=== PATIENT | male | born 1985 | race American Indian/Alaskan Native ===

== ENCOUNTER 2021-12-22 14:19 | Emergency (ER) | payer SELFPAY ==
--- NOTE | 2021-12-22 19:47 | Ultrasound Report ---
ULTRASOUND SCROTUM INDICATION / CLINICAL INFORMATION: testicular pain. COMPARISON: None available. FINDINGS -- RIGHT TESTIS: Size = 4.6 cm. - Appearance: No significant abnormality. - Cyst or Mass: None. - Color Doppler Flow: No significant abnormality. EPIDIDYMIS: No significant abnormality. HYDROCELE: Trace VARICOCELE: Present FINDINGS -- LEFT TESTIS: Size = 5 cm. - Appearance: No significant abnormality. - Cyst or Mass: None. - Color Doppler Flow: No significant abnormality. EPIDIDYMIS: No significant abnormality. HYDROCELE: Trace VARICOCELE: Present ADDITIONAL FINDINGS: None. IMPRESSION: 1. No acute testicular abnormality. No evidence of torsion. 2. Bilateral varicoceles. 3. Nonspecific trace bilateral hydroceles. Signer Name: Shekhar Hopper MD Signed: 12/22/2021 7:43 PM Workstation Name: [id number]
[2021-12-23 02:52] LABS: Bilirubin,Urine NEG (Negative); Blood,Urine NEG (Negative); Color,Urine Yellow (Yellow)
[2021-12-23 02:54] VITALS: BP 120/70
[2021-12-23 02:59] LABS: Amphetamine Screen,Urine PRESUMPTIVE NEGATIVE; Benzodiazepines Screen,Urine PRESUMPTIVE NEGATIVE; Cannabinoid Screen,Urine PRESUMPTIVE NEGATIVE; Cocaine Screen,Urine PRESUMPTIVE NEGATIVE; Methadone Screen,Urine PRESUMPTIVE NEGATIVE; Opiate Screen,Urine PRESUMPTIVE NEGATIVE
[2021-12-23 03:00] LABS: Mucus,Urine 1+ /HPF; Sperm,Urine 3+ /HPF (NP); WBC,Urine < 1.0 /HPF (0.0-6.0)
--- NOTE | 2021-12-23 03:37 | Emergency Department Report ---
ED General Adult HPI - General Chief complaint: Abdominal Pain Stated complaint: PAIN IN GROWING AREA Time Seen by Provider: 12/23/21 03:32 Source: patient Mode of arrival: Ambulatory Limitations: No Limitations - History of Present Illness Initial comments: Patient 36-year-old male with a history of right inguinal hernia, who presents for right groin pain radiating to right testicle for 2 days. Patient states he was just standing at work and felt a pull in his groin today. Denies dysuria frequency urgency no penile discharge. Patient is . Patient denies fevers or chills no nausea vomiting no abdominal or back pain. Pain is rated at 4/10 pain exacerbated by movement and palpation. Pain is relieved by nothing tried. Severity scale (0 -10): 6 - Related Data Previous Rx's Medication Instructions Recorded Last Taken Type Ibuprofen [Motrin 800 MG tab] 800 mg PO Q8HR PRN #30 tablet 12/23/21 Unknown Rx levoFLOXacin [Levaquin TAB] 500 mg PO QDAY 7 Days #7 tablet 12/23/21 Unknown Rx Allergies Allergy/AdvReac Type Severity Reaction Status Date / Time No Known Allergies Allergy Verified 12/23/21 02:41 ED Review of Systems ROS: Stated complaint: PAIN IN GROWING AREA Other details as noted in HPI Constitutional: denies: chills, fever Eyes: denies: eye pain, eye discharge, vision change ENT: denies: ear pain, throat pain Respiratory: denies: cough, shortness of breath, wheezing Cardiovascular: denies: chest pain, palpitations Endocrine: no symptoms reported Gastrointestinal: abdominal pain (Right inguinal). denies: nausea, vomiting, diarrhea, constipation, melena Genitourinary: testicular pain. denies: urgency, dysuria, frequency, hematuria, discharge, testicular mass Musculoskeletal: denies: back pain, joint swelling, arthralgia Skin: denies: rash, lesions Neurological: denies: headache, weakness, paresthesias Psychiatric: denies: anxiety, depression Hematological/Lymphatic: denies: easy bleeding, easy bruising ED Past Medical Hx - Past Medical History Additional medical history: Hernia right inguinal - Medications Home Medications: Home Medications Medication Instructions Recorded Confirmed Last Taken Type Ibuprofen [Motrin 800 MG tab] 800 mg PO Q8HR PRN #30 tablet 12/23/21 Unknown Rx levoFLOXacin [Levaquin TAB] 500 mg PO QDAY 7 Days #7 tablet 12/23/21 Unknown Rx ED Physical Exam - General Limitations: No Limitations General appearance: alert, in no apparent distress - Head Head exam: Present: normocephalic, normal inspection - Eye Eye exam: Present: EOMI Pupils: Present: normal accommodation - ENT ENT exam: Present: mucous membranes moist - Neck Neck exam: Present: normal inspection, full ROM. Absent: tenderness - Respiratory Respiratory exam: Present: normal lung sounds bilaterally. Absent: respiratory distress - Cardiovascular Cardiovascular Exam: Present: regular rate, normal rhythm, normal heart sounds. Absent: systolic murmur, diastolic murmur, rubs, gallop - GI/Abdominal GI/Abdominal exam: Present: soft, normal bowel sounds. Absent: distended, tenderness, guarding, rebound, rigid, bruit, hernia - Rectal Rectal exam: Present: deferred - exam: Present: testicular tenderness (Right epididymal tenderness no thrill no bruit), circumcision. Absent: urethral discharge, scrotal swelling, vertical testicular lie External exam: Present: normal external exam, other (No inguinal hernia). Absent: erythema, swelling, lesions, lacerations, ecchymosis, bleeding - Extremities Exam Extremities exam: Present: normal inspection, full ROM, normal capillary refill - Back Exam Back exam: Present: normal inspection, full ROM. Absent: CVA tenderness (R), CVA tenderness (L) - Neurological Exam Neurological exam: Present: alert, oriented X3, CN II-XII intact, normal gait - Expanded Neurological Exam Expanded Patient oriented to: Present: person, place, time Best Eye Response (Abdullahi): (4) open spontaneously Best Motor Response ([place]): (6) obeys commands Best Verbal Response (Abdullahi): (5) oriented [place] Total: 15 - Psychiatric Psychiatric exam: Present: normal affect, normal mood - Skin Skin exam: Present: warm, dry, intact, normal color. Absent: rash ED Course Vital Signs 12/22/21 12/23/21 17:18 02:53 Temperature 98.9 F 98.9 F Pulse Rate 78 64 Respiratory 18 15 Rate Blood Pressure 137/97 120/70 [Right] O2 Sat by Pulse 100 100 Oximetry ED Medical Decision Making - Lab Data Labs 12/23/21 12/23/21 02:42 02:42 Urine Color Yellow Urine Turbidity Clear Urine pH 6.0 Ur Specific [place] 1.031 H Urine Protein 30 mg/dl Urine Glucose (UA) Neg Urine Ketones Tr Urine Blood Neg Urine Nitrite Neg Urine Bilirubin Neg Urine Urobilinogen 4.0 Ur Leukocyte Esterase Neg Urine WBC (Auto) < 1.0 Urine RBC (Auto) 2.0 U Epithel Cells (Auto) < 1.0 Urine Mucus 1+ Urine Sperm 3+ Urine Opiates Screen Presumptive negative Urine Methadone Screen Presumptive negative Ur Barbiturates Screen Presumptive negative Ur Phencyclidine Scrn Presumptive negative Ur Amphetamines Screen Presumptive negative U Benzodiazepines Scrn Presumptive negative Urine Cocaine Screen Presumptive negative U Marijuana (THC) Screen Presumptive negative Drugs of Abuse Note Disclamer - Medical Decision Making This is epididymitis flank versus orchitis there is no testicular swelling horizontal lie left testicular rise. No inguinal hernia on exam. Plan treat for epididymitis, hydrate as directed. Follow-up with primary care doctor in 2 to 3 days. Return to emergency department should symptoms worsen. Critical care attestation.: If time is entered above; I have spent that time in minutes in the direct care of this critically ill patient, excluding procedure time. ED Disposition Clinical Impression: Epididymitis, right Disposition: 01 HOME / SELF CARE / HOMELESS Is pt being admited?: No Does the pt Need Aspirin: No Condition: Stable Instructions: Epididymitis (ED), Testicular Self-Exam, Epididymitis Additional Instructions: Take medications as prescribed, hydrate as directed follow-up with your primary care doctor in 2 to 3 days. Return to emergency department should symptoms worsen. Prescriptions: levoFLOXacin [Levaquin TAB] 500 mg PO QDAY 7 Days #7 tablet Ibuprofen [Motrin 800 MG tab] 800 mg PO Q8HR PRN #30 tablet PRN Reason: pain Referrals: [facility] [Provider Group] - 3-5 Days Forms: Work/School Release Form(ED) Time of Disposition: 03:42
== END 2021-12-23 04:24 | disposition home or self-care (01) ==
LOC: ED 14:19
DX: N45.1 Epididymitis (principal); Z79.899 Other long term (current) drug therapy
CPT/HCPCS: 80307; 81001; 93975; 99284